=== PATIENT | female | born 1990 | race Caucasian/White ===

== ENCOUNTER 2016-11-13 20:42 | Emergency (ER) | payer MEDICAID ==
[2016-11-13 21:34] LABS: BASOPHILS 0.3 % (0-2); EOSINOPHILS 1.2 % (0-7); HEMATOCRIT 41.9 % (36.0-48.0); HEMOGLOBIN 14.7 g/dL (12-16); IMMATURE GRANULOCYTES 0.3 % (0-5); LYMPHOCYTES 44.7 % (15-50); MCH 30.6 pg (26.0-34.0); MCHC 35.1 g/dL (31.0-37.0); MCV 87.1 fL (80.0-100.0); MEAN PLATELET VOLUME 11.8 fL (7.4-10.4); MONOCYTES 9.4 % (2-11); NEUTROPHILS 44.1 % (40-80); PLATELET COUNT 272 10x3/uL (130-400); RBC 4.81 10x6/uL (4.00-5.40); RDW 12.2 % (11.5-14.5); WBC 6.9 10x3/uL (4.8-10.8)
[2016-11-13 21:44] LABS: ALKALINE PHOSPHATASE 70 U/L (46-116); ALT (SGPT) 36 U/L (10-68); AMYLASE - SERUM 30 U/L (25-115); CALC OSMOLALITY 279 mosm/kg (275-300); CALCIUM 9.5 mg/dL (8.5-10.1); CARBON DIOXIDE 22.5 mmol/L (21.0-32.0); CHLORIDE - SERUM 107 mmol/L (98-107); CREATININE - SERUM 0.6 mg/dL (0.6-1.3); GLUCOSE 88 mg/dL (74-106); LIPASE 128 U/L (73-393); POTASSIUM - SERUM 3.8 mmol/L (3.5-5.1); PROTEIN - SERUM 7.5 g/dL (6.4-8.2); SODIUM 141 mmol/L (136-145); UREA NITROGEN 13 mg/dL (7-18); eGFR NON AFRICAN AMERICAN > 90 mL/min (90-120)
[2016-11-13 21:45] LABS: APPEARANCE CLEAR (CLEAR); BILIRUBIN NEGATIVE (NEGATIVE); COLOR YELLOW (YELLOW); GLUCOSE NEGATIVE (NEGATIVE); KETONE NEGATIVE (NEGATIVE); NITRITE NEGATIVE (NEGATIVE); PROTEIN NEGATIVE (NEGATIVE); UROBILINOGEN NORMAL (NORMAL)
[2016-11-13 21:46] LABS: EPITHELIAL CELLS 0-5 /hpf (0-5); RED CELLS - URINE OCC /hpf (0-5); WHITE CELLS - URINE 0-5 /hpf (0-5)
[2016-11-13 21:47] LABS: BACTERIA MODERATE /hpf (NONE SEEN)
[2016-11-13 22:49] LABS: HCG SERUM NEGATIVE (NEGATIVE)
== END 2016-11-13 23:44 | disposition home or self-care (01) ==
LOC: D.ER 20:42
PROVIDERS: Family Medicine
DX: R10.9 Unspecified abdominal pain (principal)

== ENCOUNTER 2018-02-28 20:19 | Emergency (ER) | payer MEDICAID ==
[~2018-02-28] VITALS: Ht 167.6 cm; Wt 90.9 kg
[2018-02-28 20:59] VITALS: Ht 167.6 cm; Wt 90.9 kg
[2018-02-28 21:54] LABS: HCG SERUM POSITIVE (NEGATIVE)
[2018-02-28 23:05] LABS: APPEARANCE CLEAR (CLEAR); BILIRUBIN NEGATIVE (NEGATIVE); COLOR YELLOW (YELLOW); GLUCOSE NEGATIVE (NEGATIVE); KETONE NEGATIVE (NEGATIVE); NITRITE NEGATIVE (NEGATIVE); PROTEIN NEGATIVE (NEGATIVE); UROBILINOGEN NORMAL (NORMAL)
[2018-02-28] MEDS ORDERED: TYLENOL W/CODEI1 TAB PO (23:26)
[2018-02-28 23:50] VITALS: BP 128/77
== END 2018-02-28 23:51 | disposition home or self-care (01) ==
LOC: D.ER 20:19
PROVIDERS: Family Medicine
DX: O26.891 Other specified pregnancy related conditions, first trimester (principal); Z3A.01 Less than 8 weeks gestation of pregnancy; S90.31XA Contusion of right foot, initial encounter; V43.52XA Car driver injured in collision with other type car in traffic accident, initial encounter; Y93.89 Activity, other specified; Y92.410 Unspecified street and highway as the place of occurrence of the external cause

== ENCOUNTER 2019-09-02 19:48 | Emergency (ER) | payer OTHER ==
[~2019-09-02] VITALS: Ht 167.6 cm; Wt 90.9 kg
[~2019-09-02 19:48] MED LIST: TYLENOL W/CODEI1 TAB PO
[2019-09-02 20:03] VITALS: Ht 167.6 cm; Wt 90.9 kg
[2019-09-02 20:47] LABS: CALC OSMOLALITY 276 mosm/kg (275-300); CALCIUM 9.2 mg/dL (8.5-10.1); CHLORIDE - SERUM 104 mmol/L (98-107); CREATININE - SERUM 0.7 mg/dL (0.6-1.3); GLUCOSE 86 mg/dL (74-106); POTASSIUM - SERUM 3.9 mmol/L (3.5-5.1); SODIUM 139 mmol/L (136-145); UREA NITROGEN 13 mg/dL (7-18); eGFR NON AFRICAN AMERICAN > 90 mL/min (90-120)
[2019-09-02 20:50] LABS: BASOPHILS 0.3 % (0-2); EOSINOPHILS 1.1 % (0-7); HEMATOCRIT 36.8 % (36.0-48.0); HEMOGLOBIN 12.3 g/dL (12-16); IMMATURE GRANULOCYTES 0.4 % (0-5); LYMPHOCYTES 33.6 % (15-50); MCH 29.4 pg (26.0-34.0); MCHC 33.4 g/dL (31.0-37.0); MEAN PLATELET VOLUME 11.8 fL (7.4-10.4); NEUTROPHILS 53.6 % (40-80); PLATELET COUNT 277 10x3/uL (130-400); RBC 4.18 10x6/uL (4.00-5.40); RDW 12.8 % (11.5-14.5); WBC 7.5 10x3/uL (4.8-10.8)
[2019-09-02 20:55] LABS: BACTERIA MODERATE /hpf (NEGATIVE); BILIRUBIN NEGATIVE (NEGATIVE); EPITHELIAL CELLS 0-5 /hpf (0-5); GLUCOSE NEGATIVE (NEGATIVE); KETONE NEGATIVE (NEGATIVE); NITRITE NEGATIVE (NEGATIVE); RED CELLS - URINE 0-5 /hpf (0-5); SPECIFIC GRAVITY 1.015 (1.005-1.020); UROBILINOGEN NORMAL (NORMAL); WHITE CELLS - URINE OCC /hpf (NEGATIVE)
[2019-09-02 21:18] LABS: ALBUMIN 3.9 g/dL (3.4-5.0); ALKALINE PHOSPHATASE 88 U/L (30-120); ALT (SGPT) 32 U/L (10-68); BILIRUBIN - TOTAL 0.26 mg/dL (0.2-1.3); HCG - QUANTITATIVE (MATERNAL) 1690 mIU/mL; PROTEIN - SERUM 7.6 g/dL (6.4-8.2)
[2019-09-02 21:25] LABS: HCG SERUM POSITIVE (NEGATIVE)
[2019-09-02] MEDS ORDERED: KEFLEX500 MG PO (22:35)
[2019-09-02] MEDS ORDERED: MACROBID100 MG PO (22:35)
[2019-09-02 22:56] VITALS: BP 131/79
== END 2019-09-02 22:57 | disposition home or self-care (01) ==
LOC: D.ER 19:48
PROVIDERS: Family Medicine
DX: O20.0 Threatened abortion (principal); N93.9 Abnormal uterine and vaginal bleeding, unspecified; R82.71 Bacteriuria; Z3A.01 Less than 8 weeks gestation of pregnancy

== ENCOUNTER 2019-09-04 15:04 | Observation (INO) | payer OTHER ==
[~2019-09-04] VITALS: Ht 167.6 cm; Wt 90.9 kg
[~2019-09-04 15:04] MED LIST changes: +KEFLEX500 MG PO; +MACROBID100 MG PO
--- NOTE | 2019-09-04 15:23 | NUR ---
ER [employer] SALES ASSOCIATE AT BEDSIDE FOR EXAM.
--- NOTE | 2019-09-04 16:15 | NUR ---
PT RESTING IN POSITION OF COMFORT, DENIES NEEDS. PT IN NO DISTRESS AT THIS TIME, FAMILY AT BEDSIDE, WILL CONTINUE TO MONITOR.
[2019-09-04 16:19] LABS: BASOPHILS 0.3 % (0-2); EOSINOPHILS 0.5 % (0-7); HEMATOCRIT 38.6 % (36.0-48.0); IMMATURE GRANULOCYTES 0.5 % (0-5); LYMPHOCYTES 16.8 % (15-50); MCH 29.5 pg (26.0-34.0); MCHC 33.7 g/dL (31.0-37.0); MCV 87.7 fL (80.0-100.0); MEAN PLATELET VOLUME 11.9 fL (7.4-10.4); NEUTROPHILS 70.9 % (40-80); PLATELET COUNT 260 10x3/uL (130-400); RDW 12.7 % (11.5-14.5); WBC 6.7 10x3/uL (4.8-10.8)
--- NOTE | 2019-09-04 16:37 | NUR ---
PT AMBULATORY TO BATHROOM AT THIS TIME.
--- NOTE | 2019-09-04 18:00 | NUR ---
PT TO BATHROOM AT THIS TIME AND REPORTS A "GUSH" OF BLOOD. STATES PAIN LEVEL IS THE SAME, BUT BLEEDING JUST STARTED.
--- NOTE | 2019-09-04 19:05 | NUR ---
PT AMBULATORY TO BATHROOM AT THIS TIME
--- NOTE | 2019-09-04 19:20 | NUR ---
REPORT TO ANUSHA LI USING VADIMAR
--- NOTE | 2019-09-04 19:30 | NUR ---
PT GIVEN TWO GLASSES OF WATER PER U/S TECH REQUEST
--- NOTE | 2019-09-04 20:06 | NUR ---
PT REC'D FROM ER VIA WHEELCHAIR WITH COMPLAINTS OF ABDOMINAL PAIN SICE YESTERDAY. PT STATES THAT SHE HAD HAD DIARRHEA SINCE SATURDAY AND STARTED HURTING ON YESTERDAY SO SHE CAME TO THE ER. PT DENIES VAGINAL BLEEDING INITIALLY BUT STATES THAT SHE HAD SOME BLEEDING IN THE ER. THIS WAS VERIFIED BY STAFF. SALINE LOCK TO THE RT AC. SITE CLEAR AND PATENT AT THIS TIME. NO ABDOMINAL TENDERNESS NOTED. ABDOMEN SOFT. PT STATES THAT SHE IS PASSING CLOTS WHEN SHE VOIDS. WILL MONITOR. Nathan GOMEZ RN
[2019-09-04 20:27] VITALS: BP 144/86; Ht 167.6 cm; Wt 90.9 kg
--- NOTE | 2019-09-04 21:24 | NUR ---
PT MEDICATED WITH NORCO FOR PAIN LEVEL OF 8/10. WILL CONTINUE TO MONITOR. Nathan GOMEZ RN
--- NOTE | 2019-09-04 22:09 | NUR ---
PT REC'D IN BED ASLEEP AT THIS TIME. S/O AT THE BEDSIDE. NO DISTRESS NOTED. Nathan GOMEZ RN
[2019-09-05 00:15] VITALS: BP 116/53
--- NOTE | 2019-09-05 00:15 | NUR ---
PT REC'D ASLEEP AT THIS TIME. EASILY AWAKENED. STATES PAIN IS APPROX 4/10. VSS. NO DISTRESS NOTED. L [ANEESH RN
--- NOTE | 2019-09-05 02:03 | NUR ---
PT MEDICATED FOR PAIN 05/21. NORCO GIVEN AT THIS TIME. WILL CONTINUE TO MONITOR. Nathan GOMEZ RN
--- NOTE | 2019-09-05 02:53 | NUR ---
PT ASLEEP AT THIS TIME. DID NOT AWAKEN. Nathan GOMEZ RN
[2019-09-05 05:45] VITALS: BP 125/58
--- NOTE | 2019-09-05 05:45 | NUR ---
PT REC'D IN BED ASLEEP BUT EASILY AWAKENED. VSS. SALINE LOCK INTACT. AFEBRILE. NO DISTRESS NOTED. DENIES PAIN. Nathan GOMEZ RN
[2019-09-05 06:32] LABS: BASOPHILS 0.2 % (0-2); HEMATOCRIT 35.1 % (36.0-48.0); HEMOGLOBIN 11.9 g/dL (12-16); IMMATURE GRANULOCYTES 0.3 % (0-5); LYMPHOCYTES 36.6 % (15-50); MCH 29.5 pg (26.0-34.0); MCHC 33.9 g/dL (31.0-37.0); MCV 86.9 fL (80.0-100.0); MEAN PLATELET VOLUME 11.6 fL (7.4-10.4); MONOCYTES 13.1 % (2-11); NEUTROPHILS 48.8 % (40-80); PLATELET COUNT 244 10x3/uL (130-400); RBC 4.04 10x6/uL (4.00-5.40); RDW 12.8 % (11.5-14.5); WBC 5.7 10x3/uL (4.8-10.8)
--- NOTE | 2019-09-05 06:39 | NUR ---
pt rec'd in bed at this time. no distress noted at this time. cherelle wright rn
--- NOTE | 2019-09-05 07:15 | NUR ---
pt asleep at this time. bedside report omitted at this time. cherelle wright rn
[2019-09-05 08:00] VITALS: BP 121/77
--- NOTE | 2019-09-05 08:00 | NUR ---
AM ASSESSMENT COMPLETED, PT SITTING UP IN BED, RESP EVEN AND UNLABORED, SKIN WARM AND DRY, LUNGS CTAB, HEART RRR, ABD SOFT AND MILDLY TENDER TO LLQ, PT ABLE TO PINPOINT PAIN LOCATION DIRECTLY, STATES DOES NOT REFER ELSEWHERE, VOIDING WITHOUT DIFFIUCLTY, TOLERATING CLEAR LIQUIDS, REPORTS ONLY SCANT SPOTTING TO PERIPAD THAT SHE HAS CHANGED ONCE SINCE LAST PM, COFFMAN FREELY, SCDS ON AND FUNCTIONING, CALL LIGHT IN EASY REACH, BED IN LOW POSITION, SIGNIFICANT OTHER AT BS FOR SUPPORT. SR UP X2, WILL MONITOR FOR CHANGE IN CONDITION.
--- NOTE | 2019-09-05 08:10 | NUR ---
CUTTER HOT KNIFE PAGED PER IMAGING STAFF IN HOUSE FOR ORDERED ULTRASOUND THIS AM.
--- NOTE | 2019-09-05 08:25 | NUR ---
DR SHEN IN TO SEE PT ON ROUNDS THIS AM.
--- NOTE | 2019-09-05 09:10 | NUR ---
rounds completed, denies need/concerns at present, call light in easy reach. continue to monitor.
--- NOTE | 2019-09-05 10:35 | NUR ---
DR SHEN PAGED WITH IMMEDIATE CALL BACK, STATES WILL REVIEW ULTRASOUND REPORT AND CALL BACK.
--- NOTE | 2019-09-05 11:06 | NUR ---
DR SHEN PHONES WITH ORDERS FOR CMP AND CBC, ORDERS ENTERED AND PHONED TO EX ASSISTANT/PROGRAM DIRECTOR FOR NEED TO DRAW PT.
[2019-09-05 11:51] LABS: BASOPHILS 0.2 % (0-2); EOSINOPHILS 0.9 % (0-7); HEMATOCRIT 37.2 % (36.0-48.0); HEMOGLOBIN 12.6 g/dL (12-16); IMMATURE GRANULOCYTES 0.7 % (0-5); LYMPHOCYTES 34.2 % (15-50); MCH 29.5 pg (26.0-34.0); MCHC 33.9 g/dL (31.0-37.0); MCV 87.1 fL (80.0-100.0); MEAN PLATELET VOLUME 11.9 fL (7.4-10.4); MONOCYTES 12.6 % (2-11); NEUTROPHILS 51.4 % (40-80); PLATELET COUNT 245 10x3/uL (130-400); RBC 4.27 10x6/uL (4.00-5.40); RDW 12.8 % (11.5-14.5); WBC 4.5 10x3/uL (4.8-10.8)
[2019-09-05 11:59] LABS: CALC OSMOLALITY 270 mosm/kg (275-300); CALCIUM 9.1 mg/dL (8.5-10.1); CARBON DIOXIDE 27.6 mmol/L (21.0-32.0); CHLORIDE - SERUM 103 mmol/L (98-107); CREATININE - SERUM 0.6 mg/dL (0.6-1.3); GLUCOSE 109 mg/dL (74-106); SODIUM 136 mmol/L (136-145); UREA NITROGEN 6 mg/dL (7-18); eGFR NON AFRICAN AMERICAN > 90 mL/min (90-120)
[2019-09-05 12:05] LABS: ALBUMIN 3.8 g/dL (3.4-5.0); ALKALINE PHOSPHATASE 90 U/L (30-120); ALT (SGPT) 43 U/L (10-68); BILIRUBIN - TOTAL 0.33 mg/dL (0.2-1.3); PROTEIN - SERUM 7.1 g/dL (6.4-8.2)
--- NOTE | 2019-09-05 12:32 | NUR ---
dr browning paged with cbc/cmp results, reviewed with pt treatment options per pt; orders received for methotrexate 75mg IM x1 (or 50mg/m2 bsa) now, may discharge home with instructions to phone [facility]/dr browning with any increased bleeding or pain, call clinic saturday for follow up appointment to be scheduled on saturday and saturday for quantitative bhcg testing.
--- NOTE | 2019-09-05 13:03 | NUR ---
DESHAUN ERAZO, IN-HOUSE PHARMACIST, RELAYS THAT APPROPRIATE DOSE PER [facility] IS 50MG OF METHOTREXATE, IS OKAY FOR THIS RN TO GIVE IM ROUTE IN THIS FACILITY, AND STATES WILL DOUBLE CHECK AND CALL THIS RN BACK WHEN SURE OF DOSE.
[2019-09-05] MEDS ORDERED: HYDROCODON-ACE1 EAC7 PO (13:32)
--- NOTE | 2019-09-05 13:39 | NUR ---
PHONED DR SHEN WITH PHARMACIST MAKING THIS RN AWARE THAT THIS FACILITY DOES NOT HAVE METHOTREXATE AND IS UNAVAILABLE WITH [facility] DUE TO NATIONAL BACKORDER. DR SHEN STATES OKAY TO DISCHARGE PT TO HOME WITH INSTRUCTIONS TO RETURN TO CLINIC SATURDAY MORNING FOR QUANTITATIVE BHCG TEST INSTEAD OF SATURDAY. STATES WILL NOTIFY THE CLINIC OF PT COMING SATURDAY.
--- NOTE | 2019-09-05 13:45 | NUR ---
discharge instructions reviewed with pt and pt significant other, pt to call 8am saturday and to come to clinic saturday to see dr browning pt is aware to notify clinic 03/09 if any increased bleeding such as menses-like bleeding or abdominal pain. saline lock to right a/c removed, gauze dressing applied and secured with clear tape. pt tolerates procedure well. pt and significant other state understanding of all discharge instructions provided including written handouts provided on ectopic and norco for pain.
--- NOTE | 2019-09-05 14:04 | NUR ---
pt discharged to home with significant other and all personal belongings; ambulatory, in stable condition refuses wheelchair offered.
== END 2019-09-05 14:04 | disposition home or self-care (01) ==
LOC: D.ER 15:04 → OBSVTIME 17:51 → D.LD 17:51
PROVIDERS: Family Medicine; ADMIT Obstetrics & Gynecology; ATTEND Obstetrics & Gynecology
DX: O02.81 Inappropriate change in quantitative human chorionic gonadotropin (hCG) in early pregnancy (principal); O99.340 Other mental disorders complicating pregnancy, unspecified trimester

== ENCOUNTER 2019-09-07 14:41 | Observation (INO) | payer OTHER ==
[~2019-09-07] VITALS: Ht 167.6 cm; Wt 90.7 kg
[~2019-09-07 14:41] MED LIST changes: +HYDROCODON-ACE1 EAC7 PO
[2019-09-07 15:37] LABS: BASOPHILS 0.3 % (0-2); HEMATOCRIT 35.1 % (36.0-48.0); HEMOGLOBIN 11.8 g/dL (12-16); IMMATURE GRANULOCYTES 0.1 % (0-5); LYMPHOCYTES 24.8 % (15-50); MCH 29.6 pg (26.0-34.0); MCHC 33.6 g/dL (31.0-37.0); MCV 88.2 fL (80.0-100.0); MEAN PLATELET VOLUME 11.8 fL (7.4-10.4); MONOCYTES 6.4 % (2-11); NEUTROPHILS 67.4 % (40-80); PLATELET COUNT 267 10x3/uL (130-400); RBC 3.98 10x6/uL (4.00-5.40); RDW 12.7 % (11.5-14.5); WBC 6.9 10x3/uL (4.8-10.8)
[2019-09-07 15:51] LABS: BILIRUBIN NEGATIVE (NEGATIVE); EPITHELIAL CELLS OCC /hpf (0-5); GLUCOSE NEGATIVE (NEGATIVE); KETONE NEGATIVE (NEGATIVE); NITRITE NEGATIVE (NEGATIVE); RED CELLS - URINE >50 /hpf (0-5); UROBILINOGEN NORMAL (NORMAL); WHITE CELLS - URINE 0-5 /hpf (NEGATIVE)
[2019-09-07 15:52] LABS: BACTERIA FEW /hpf (NEGATIVE)
[2019-09-07 15:56] LABS: CALC OSMOLALITY 281 mosm/kg (275-300); CALCIUM 8.9 mg/dL (8.5-10.1); CARBON DIOXIDE 30.3 mmol/L (21.0-32.0); CHLORIDE - SERUM 106 mmol/L (98-107); CREATININE - SERUM 0.8 mg/dL (0.6-1.3); GLUCOSE 117 mg/dL (74-106); HCG SERUM POSITIVE (NEGATIVE); POTASSIUM - SERUM 3.8 mmol/L (3.5-5.1); SODIUM 141 mmol/L (136-145); UREA NITROGEN 12 mg/dL (7-18); eGFR NON AFRICAN AMERICAN > 90 mL/min (90-120)
[2019-09-07 16:07] LABS: ALBUMIN 3.5 g/dL (3.4-5.0); ALKALINE PHOSPHATASE 84 U/L (30-120); ALT (SGPT) 32 U/L (10-68); BILIRUBIN - TOTAL 0.22 mg/dL (0.2-1.3); HCG - QUANTITATIVE (MATERNAL) 917 mIU/mL
--- NOTE | 2019-09-07 16:25 | NUR ---
US NOTIFIED AND PT DRINKING TO FILL BLADDER
--- NOTE | 2019-09-07 17:00 | NUR ---
TO US VIA WC WITH US TECH
[2019-09-07 17:35] VITALS: BP 123/80
--- NOTE | 2019-09-07 17:59 | NUR ---
DR TRAN AT PERFORMING VAGINAL EXAM
[2019-09-07 18:38] VITALS: BP 134/82
--- NOTE | 2019-09-07 20:40 | NUR ---
PT ADMITTED TO LABOR AND DELIVERY FOR A PROCEDURE IN THE MORNING. PT POSSIBLY HAS AN ECTOPIC . PT STATES SHE HAS BEEN SPOTTING AND CRAMPING SINCE LAST SATURDAY. SHE IS MOSTLY CRAMPING AT THIS TIME. HER IS WITH HER. HER SKIN IS WARM AND DRY. HEART SOUNDS ARE WNL, LUNGS SOUND CLEAR. BOWEL SOUNDS ARE HEARD. SHE IS AMBULATORY IN HER ROOM. SHE HAS AN IV IN HER RIGHT FOREARM THAT IS KVO. HER CALL LIGHT IS CLOSE AT HAND
--- NOTE | 2019-09-07 22:00 | NUR ---
PT IS RESTING IN BED WATCHING TV. SHE STATES HER CRAMPING IS BEGINNING TO GET WORSE.
--- NOTE | 2019-09-07 23:31 | NUR ---
PT CRAMPING WORSE. SHE RATES HER PAIN A 7. SHE RECEIVED NORCO 5 PO.
--- NOTE | 2019-09-08 00:05 | NUR ---
PT STATES CRAMPING IS BETTER.
[2019-09-08 00:09] VITALS: BP 106/78; Ht 167.6 cm; Wt 90.7 kg
--- NOTE | 2019-09-08 02:00 | NUR ---
PT IS RESTING QUIETLY WITH HER EYES CLOSED. RESPIRATIONS ARE EVEN AND UNLABORED.
[2019-09-08 04:00] VITALS: BP 123/65
--- NOTE | 2019-09-08 04:30 | NUR ---
PT AWAKE WITH CRAMPING. NARCO 5 GIVEN PO.
[2019-09-08 06:34] LABS: BASOPHILS 0.3 % (0-2); EOSINOPHILS 0.8 % (0-7); HEMATOCRIT 33.8 % (36.0-48.0); HEMOGLOBIN 11.4 g/dL (12-16); IMMATURE GRANULOCYTES 0.4 % (0-5); LYMPHOCYTES 24.9 % (15-50); MCH 29.4 pg (26.0-34.0); MCHC 33.7 g/dL (31.0-37.0); MCV 87.1 fL (80.0-100.0); MONOCYTES 10.1 % (2-11); NEUTROPHILS 63.5 % (40-80); PLATELET COUNT 275 10x3/uL (130-400); RBC 3.88 10x6/uL (4.00-5.40); RDW 12.7 % (11.5-14.5); WBC 7.5 10x3/uL (4.8-10.8)
[2019-09-08 07:13] LABS: ALBUMIN 3.4 g/dL (3.4-5.0); ALKALINE PHOSPHATASE 78 U/L (30-120); ALT (SGPT) 28 U/L (10-68); BILIRUBIN - TOTAL 0.31 mg/dL (0.2-1.3); CALC OSMOLALITY 276 mosm/kg (275-300); CALCIUM 8.9 mg/dL (8.5-10.1); CARBON DIOXIDE 26.5 mmol/L (21.0-32.0); CHLORIDE - SERUM 104 mmol/L (98-107); CREATININE - SERUM 0.6 mg/dL (0.6-1.3); GLUCOSE 93 mg/dL (74-106); HCG - QUANTITATIVE (MATERNAL) 635 mIU/mL; POTASSIUM - SERUM 3.8 mmol/L (3.5-5.1); PROTEIN - SERUM 6.5 g/dL (6.4-8.2); SODIUM 139 mmol/L (136-145); UREA NITROGEN 9 mg/dL (7-18); eGFR NON AFRICAN AMERICAN > 90 mL/min (90-120)
[2019-09-08 08:33] VITALS: BP 130/73
--- NOTE | 2019-09-08 08:35 | NUR ---
ENTERED ROOM- PT ASLEEP ON RT SIDE. AWAKENES WHEN ENTER ROOM. VERBAL RESPONSES APPRO TO QUESTIONS.ASSESSMENT DONE. REQUESTING PAIN MEDICATION. CO CRAMPING AND RATES PAIN A 7 ON SCALE OF 0-10. NO VAG BLEEDING AT THIS TIME.
--- NOTE | 2019-09-08 08:53 | NUR ---
SITTING UP DRINKING COFFEE -NO REQUESTS.
[2019-09-08 10:34] VITALS: BP 132/77
--- NOTE | 2019-09-08 10:36 | NUR ---
DENIES ANY PROBLEMS. SITTING UP IN BED. VOIDED AND NO BLEEDING. STATES "JUST TIRED"
--- NOTE | 2019-09-08 10:38 | NUR ---
PT HAS INST SHEET ON METHOTREXATE WITH INFO FOR WHEN DISCHARGED AND AT HOME.
[2019-09-08 12:26] VITALS: BP 143/82
[2019-09-08 12:32] VITALS: BP 134/80
--- NOTE | 2019-09-08 12:32 | NUR ---
POC DISCUSSED WITH PT. SALINE LOCK REMOVED WITH CATH TIP INTACT. PRESSURE HELD AND BANDAIDE APPLIED.
--- NOTE | 2019-09-08 13:20 | NUR ---
SPOKE WITH CAMILO MARTIN REP. APPT FOR LAB ON SATURDAY AND SATURDAY FOR 0900 SCHEDULED AND SATURDAY (09/15/19) AT [address] TRAN.
--- NOTE | 2019-09-08 13:43 | NUR ---
PT REQUESTING PAIN MEDICATION BEFORE DISCHARGE -CO CRAMPING. MEDICATION GIVEN
--- NOTE | 2019-09-08 13:50 | NUR ---
DISCHARGE INST VERBAL AND WRITTEN GIVEN. PT HEALTH SUMMARY GIVEN. DENIES QUESTIONS.
--- NOTE | 2019-09-08 13:58 | NUR ---
TO AUTO VIA W/C. STABLE
== END 2019-09-08 14:02 | disposition home or self-care (01) ==
LOC: D.ER 14:41 → D.LD 18:23 → OBSVTIME 18:23 → D.LD 09-08 14:02
PROVIDERS: Family Medicine; ADMIT Student in an Organized Health Care Education/Training Program; ATTEND Student in an Organized Health Care Education/Training Program
DX: O20.9 Hemorrhage in early pregnancy, unspecified (principal); Z3A.01 Less than 8 weeks gestation of pregnancy